=== PATIENT | male | born 1975 | race African-American/Black ===

== ENCOUNTER 2020-09-13 03:14 | Emergency (ER) | payer BC ==
[~2020-09-13] VITALS: Ht 182.9 cm; Wt 158.8 kg
[2020-09-13] MEDS ORDERED: KETO10TA2 PO (13:34)
[2020-09-13] MEDS ORDERED: TAMS0.4C PO (13:35)
== END 2020-09-13 13:51 | disposition home or self-care (01) ==
LOC: ER 03:14
DX: N20.0 Calculus of kidney (principal); M54.5 Low back pain; R10.2 Pelvic and perineal pain; E87.1 Hypo-osmolality and hyponatremia